=== PATIENT | female | born 1980 | race Two or more races ===

== ENCOUNTER 2024-10-08 23:18 | Emergency (ER) | payer MEDICAID, OTHER ==
[~2024-10-08] VITALS: Ht 259.1 cm; Wt 90.1 kg
[2024-10-09 00:56] LABS: Urine Bacteria None Seen /hpf (None Seen)
[2024-10-09 01:02] LABS: Basophils # (auto) 0 10 ^3/uL (0-0.2); Basophils % (auto) 0.7 % (0.0-2.0); Eosinophils # (auto) 0.1 10 ^3/uL (0-0.8); Eosinophils % (auto) 1.2 % (0.0-7.0); Hematocrit 45.9 % (36.0-46.0); Hemoglobin 15.8 g/dL (12.2-16.2); Lymphocytes % (auto) 27.2 % (10.0-50.0); Mean Corpuscular Hemoglobin 28.6 pg (28.0-32.0); Mean Corpuscular Hgb Conc. 34.5 g/dL (32.0-36.0); Monocytes # (auto) 0.4 10 ^3/uL (0-1.3); Monocytes % (auto) 4.9 % (0.0-12.0); Nucleated Red Blood Cells % 0.4 %; Platelet Count (auto) 343 10^3/uL (140-450); Red Blood Cells 5.53 10^6/uL (4.0-5.20); Red Cell Distribution Width 13.5 % (11.8-14.3); White Blood Cell 7.5 10^3/uL (4.4-10.8)
[2024-10-09 01:05] LABS: Urine Blood TRACE /uL (Negative); Urine Clarity Clear (Clear); Urine Color Light-Yellow (Yellow); Urine Mucus FEW (None Seen); Urine Protein, UAD Negative (Negative); Urine Specific Gravity 1.028 (1.001-1.035); Urine Squamous Epithelial Cell FEW /hpf (<5); Urine Urobilinogen Normal (Negative); Urine WBC 1 /HPF (0-5); Urine pH 5.5 (5.0-9.0)
[2024-10-09 01:10] LABS: Chloride 104 mmol/L (98-107); Potassium 4.2 mmol/L (3.5-5.1); Sodium 142 mmol/L (136-145)
[2024-10-09 01:11] LABS: Anion Gap 10 (5-15); Carbon Dioxide 28 mmol/L (20-31)
[2024-10-09 01:12] LABS: Calcium 9.6 mg/dL (8.7-10.4)
[2024-10-09 01:16] LABS: BUN/Creatinine Ratio 17.6 (10.0-20.0); Blood Urea Nitrogen 15 mg/dL (9-23); Glucose 97 mg/dL (74-106)
[2024-10-09] MEDS ORDERED: IBUP-1455 PO (02:45)
[2024-10-09] MEDS ORDERED: ACET500T58 PO (02:45)
--- NOTE | 2024-10-09 02:45 | ED.PDOC ---
General HPI Comments This patient is a pleasant but morbidly obese 43-year-old female who arrives the ED today for evaluation of bilateral back/flank pain concerns radiating towards her abdomen for the past week. Patient denies any history of kidney stones. Patient denies any urinary discomfort. Patient denies any lifting events were she had felt she traumatized her back. Patient denies any fever nausea or vomiting. Patient was hypertensive at arrival. Chief Complaint: Flank Pain Time Seen by MD: 23:32 Reviewed notes: Nurses Notes Allergies: Coded Allergies: NO KNOWN ALLERGIES (Unverified , 10/09/24) Home Meds Active Scripts Acetaminophen (Acetaminophen) 500 Mg Tab, 500 MG PO Q4HP PRN, #30 TAB Prov:CHEYENNE PETERSEN PAC 10/09/24 Ibuprofen Micronized (Ibuprofen) 800 Mg Tab, 800 MG PO Q8HP PRN, #20 TAB Prov:CHEYENNE PETERSEN PAC 10/09/24 Information Source: Patient Mode of Arrival: Ambulatory Severity: Moderate Timing: Days Duration: Since onset Prehospital treatment: None Onset: Spontaneous Symptoms: None History of: None Location: Abdomen, (R) Flank, (L)Flank associated signs and symptoms: Abdominal Pain, Flank Pain Past Medical History PAST MEDICAL HISTORY: Denies Surgical History: Denies all surgeries CERTIFIED PATHOLOGY ASSISTANT History: No Pertinent CERTIFIED PATHOLOGY ASSISTANT History Family History Family History: Reviewed,noncontributory to illness, No family hx of Cancer, No family hx of DM, No family hx of Heart armando, No family hx of HTN, No family hx ofKidney armando, No family hx of Liver armando, No family hx of Lung armando, No family hx of Stroke Social History Smoker: Non-Smoker Alcohol: Denies ETOH Use Drugs: Denies Drug Use Lives In: Home Constitutional: denies: chills, diaphoresis, fatigue, fever, malaise, sweats, weakness, others EENTM: denies: blurred vision, double vision, ear bleeding, ear discharge, ear drainage, ear pain, ear ringing, eye pain, eye redness, hearing loss, mouth pain, mouth swelling, nasal discharge, nose bleeding, nose congestion, nose pain, photophobia, tearing, throat pain, throat swelling, voice changes, others Respiratory: denies: cough, hemoptysis, orthopnea, SOB at rest, shortness of breath, SOB with excertion, stridor, wheezing, others Cardiovascular: denies: chest pain, dizzy spells, diaphoresis, Dyspnea on exertion, edema, irregular heart beat, left arm pain, lightheadedness, palpitations, PND, syncope, others Gastrointestinal: reports: abdominal pain; denies: abdomen distended, blood streaked bowels, constipated, diarrhea, dysphagia, difficulty swallowing, hematemesis, melena, nausea, poor appetite, poor fluid intake, rectal bleeding, rectal pain, vomiting, others Genitourinary: reports: flank pain; denies: abnormal vagina bleeding, burning, dyspareunia, dysuria, frequency, hematuria, incontinence, pain, , vagina discharge, urgency, others Neurological: denies: dizziness, fainting, headache, left sided numbness, left sided weakness, numbness, paresthesia, pre-existing deficit, right sided numbness, right sided weakness, seizure, speech problems, tingling, tremors, wea kness, others Musculoskeletal: denies: back pain, gout, joint pain, joint swelling, muscle pain, muscle stiffness, neck pain, others Integumetry: denies: bruises, change in color, change in hair/nails, dryness, l aceration, lesions, lumps, rash, wounds, others Allergic/Immunocompromised: denies: Difficulty Healing, Frequent Infections, Hives, Itching, others Hematologic/Lymphatic: denies: anemia, blood clots, easy bleeding, easy bruising, swollen glands, others Endocrine: denies: excessive hunger, excessive sweating, excessive thirst, excessive urination, flushing, intolerance to cold, intolerance to heat, unexplained weight gain, unexplained weight loss, others Psychiatric: denies: anxiety, bipolar disorder, depression, hopeless, panic disorder, schizophrenia, sleepless, suicidal, others Physical Exam General Appearance: Moderate Distress ([id number] distress due to bilateral flank pain concerns.), Normal HEENT: Normal ENT Inspection, Pharynx Normal, TMs Normal Neck: Full Range of Motion, Non-Tender, Normal, Normal Inspection Respiratory: Chest Non-Tender, Lungs Clear, No Accessory Muscle Use, No Respiratory Distress, Normal Breath Sounds Cardiovascular: No Edema, No JVD, No Murmur, No Gallop, Normal Peripheral Pulses, Regular Rate/Rhythm Breast Exam: Deferred Gastrointestinal: Other (Nonspecific CVA regional tenderness bilaterally extend ing towards the abdomen. No pulsatile masses. Difficult to assess due to body habitus.) Genitalia: Deferred Pelvic: Deferred Rectal: Deferred Extremities: No calf tenderness, Normal capillary refill, Normal inspection, Normal range of motion, Non-tender, No pedal edema Neurologic: Alert, No Motor Deficits, Normal Affect, Normal Mood, No Sensory Deficits Cerebellar Function: Normal Reflexes: Normal Skin: Dry, Normal Color, Warm Lymphatic: No Adenopathy Was a procedure done? Was a procedure done?: No Differential Diagnosis Kidney stone (Female): Other (Kidney stone, pyelonephritis, UTI, musculoskeletal pain) X-Ray, Labs, Meds, VS Vital Signs Date Time Temp Pulse Resp B/P (MAP) Pulse Ox O2 Delivery O2 Flow Rate FiO2 10/09/24 00:21 98.6 79 20 153/106 (122) 98 98.6 Lab Test 10/09/24 00:53 10/09/24 00:17 Range/Units White Blood Count 7.5 4.4-10.8 10^3/uL Red Blood Count 5.53 H 4.0-5.20 10^6/uL Hemoglobin 15.8 12.2-16.2 g/dL Hematocrit 45.9 36.0-46.0 % Mean Corpuscular Volume 83.0 80.0-100.0 fL Mean Corpuscular Hemoglobin 28.6 28.0-32.0 pg Mean Corpuscular Hemoglobin Concent 34.5 32.0-36.0 g/dL Red Cell Distribution Width 13.5 11.8-14.3 % Platelet Count 343 140-450 10^3/uL Mean Platelet Volume 7.1 6.9-10.8 fL Neutrophils (%) (Auto) 66.0 37.0-80.0 % Lymphocytes (%) (Auto) 27.2 10.0-50.0 % Monocytes (%) (Auto) 4.9 0.0-12.0 % Eosinophils (%) (Auto) 1.2 0.0-7.0 % Basophils (%) (Auto) 0.7 0.0-2.0 % Neutrophils # (Auto) 5.0 1.6-8.6 10 ^3/uL Lymphocytes # (Auto) 2.0 0.4-5.4 10 ^3/uL Monocytes # (Auto) 0.4 0-1.3 10 ^3/uL Eosinophils # (Auto) 0.1 0-0.8 10 ^3/uL Basophils # (Auto) 0 0-0.2 10 ^3/uL Nucleated Red Blood Cells 0.4 % Sodium Level 142 136-145 mmol/L Potassium Level 4.2 3.5-5.1 mmol/L Chloride Level 104 98-107 mmol/L Carbon Dioxide Level 28 20-31 mmol/L Anion Gap 10 5-15 Blood Urea Nitrogen 15 9-23 mg/dL Creatinine 0.85 0.550-1.02 mg/dL Glomerular Filtration Rate Calc 88 >90 mL/min BUN/Creatinine Ratio 17.6 10.0-20.0 Serum Glucose 97 74-106 mg/dL Calcium Level 9.6 8.7-10.4 mg/dL Urine Color Light-yellow Yellow Urine Clarity Clear Clear Urine pH 5.5 5.0-9.0 Urine Specific [place] 1.028 1.001-1.035 Urine Protein Negative Negative Urine Ketones Negative Negative Urine Blood Trace H Negative /uL Urine Nitrite Negative Negative Urine Bilirubin Negative Negative Urine Urobilinogen Normal Negative mg/dL Urine Leukocyte Esterase Negative Negative /uL Urine RBC 2 0 - 4 /hpf Urine Microscopic WBC 1 0-5 /HPF Urine Squamous Epithelial Cells Few <5 /hpf Urine Bacteria None seen None Seen /hpf Urine Mucus Few None Seen Urine Glucose Normal Normal mg/dL X-Ray, Labs, Meds, VS Comment All studies performed the ED were evaluated by me personally. Serum studies were unremarkable for any systemic process as well as an unremarkable urinalysis. CT of the abdomen and pelvis results were pending at time of this note. Based on urinalysis, I believe the patient appears to have a musculoskeletal concern. Advised patient utilize pain medication as needed as well as ice therapy. Patient appears to be transferred to Dr. Ortiz for evaluation of CT results when returned. Once reviewed, he will respond accordingly. Time of 1ST Reevaluation: 02:42 Reevaluation 1ST: Improved Consultation: PCP Patient Education/Counseling: Diagnosis, Treatment Family Education/Counseling: Diagnosis, Treatment Departure 1 Departure Time of Disposition: 02:43 Impression: Primary Impression: Low back strain Disposition: 01 HOME / SELF CARE / HOMELESS Condition: Stable Additional Instructions: Advised patient utilize pain medication as needed for symptomatic relief as well as ice therapy. If symptoms continue, patient will need to follow up with the primary care provider for continued evaluation and management. e-Prescriptions Acetaminophen (Acetaminophen) 500 Mg Tab 500 MG PO Q4HP PRN, #30 TAB Prov: CHEYENNE PETERSEN PAC 10/09/24 Ibuprofen Micronized (Ibuprofen) 800 Mg Tab 800 MG PO Q8HP PRN, #20 TAB Prov: CHEYENNE PETERSEN PAC 10/09/24 Discharged With: Self, Friend Critical Care Note Critical Care Time?: No Stability Stability form required: No Heart Score Heart Score: Heart Score Response (Comments) Value History N/A 0 EKG N/A 0 Age N/A 0 Risk Factors N/A 0 Troponin N/A 0 Total 0 CHEYENNE PETERSEN PAC Oct 09, 2024 02:45
[2024-10-09 03:30] VITALS: PULSE 77; RESP 17; O2SAT 98
[2024-10-09] MEDS: KETOROLAC TROMETH 60MG/2ML VIAL IM ONE (03:34)
[2024-10-09] MEDS: HYDROcodone-ACET 5/325MG TAB PO ONE (03:35)
[2024-10-09 03:40] VITALS: BP 150/102; PULSE 78; RESP 20; TEMP 98.2; O2SAT 98
--- NOTE | 2024-10-09 04:23 | DVH ---
Examination: ABPL CLINICAL INDICATION: Bilateral flank pain COMPARISON: None. CONTRAST USED: None. TECHNIQUE: A plain CT study of the abdomen and pelvis is performed. The examination was performed wi th 5 mm thin slices. Multiplanar reconstructions were obtained. CT scan done according to ALARA (As L ow As Reasonably Achievable). FINDINGS: CT ABDOMEN Lung bases: The evaluation of lung bases demonstrates no focal infiltrates or pleural effusion. Smal l sliding hiatus hernia is seen. Unenhanced Liver: The liver is normal in size. A well-defined hypodense lesion measuring 29 mm is s een in the right lobe of liver; suggest further evaluation with triple with CT abdomen study with con trast for better characterization. There is no intrahepatic biliary radicle dilatation. Gallbladder: The gallbladder is normal and reveals no intrinsic abnormality. The common bile duct is not dilated. Unenhanced Pancreas: The pancreas is normal in size and shape. No focal lesion is seen within. The p eripancreatic fat-planes are normal. Spleen: The spleen is normal in size and does not show any focal abnormality. Retroperitoneum: Both adrenal glands are normal in size and morphology in this unenhanced CT scan. T here is no significant retroperitoneal lymphadenopathy. The kidneys are normal in size, with no hydro nephrosis or renal calculi. Vessels: Aorta, IVC and the mesenteric vessels cannot be commented in this unenhanced CT scan. Stomach and bowel: The bowel loops are unremarkable. There is no ascites. Skeletal system: Degenerative changes are noted in the thoracolumbar spine. CT PELVIS Appendix: The appendix is unremarkable in appearance, measuring 3 mm. Colon: The ascending, transverse, descending, sigmoid colon and rectum are unremarkable. Bladder: The urinary bladder is unremarkable. Uterus and ovaries: Uterus appears enlarged in size with a partially calcified fibroid measuring 34 mm. No adnexal pathology. No pelvic lymphadenopathy is identified. No abnormal fluid collection is se en. IMPRESSION: 1. No renal or ureteric or vesical calculi or hydronephrosis. 2. Additional chronic and/or ancillary findings as detailed above. Suggest clinical correlation and follow-up as clinically deemed necessary. Electronically Signed 10/09/2024 04:22 Raji King
== END 2024-10-09 05:40 | disposition home or self-care (01) ==
LOC: ER 23:18
DX: S39.012A Strain of muscle, fascia and tendon of lower back, initial encounter (principal); X58.XXXA Exposure to other specified factors, initial encounter; Y93.89 Activity, other specified; Y92.89 Other specified places as the place of occurrence of the external cause; Y99.8 Other external cause status
CPT/HCPCS: 36415; 74176; 80048; 81001; 85025; 96372; 99285; J1885